=== PATIENT | female | born 1980 | race Two or more races ===

== ENCOUNTER 2024-11-02 04:55 | Day surgery (SDC) | payer OTHER ==
[2024-10-24 11:00] VITALS: BP 108/77
[~2024-11-02] VITALS: Ht 170.2 cm; Wt 69.4 kg
[~2024-11-02 04:55] MED LIST: MULTIPLE VITAM1 EAC2 PO
[2024-11-02] MEDS ORDERED: MONODOX100 MG PO (08:40)
[2024-11-02] MEDS ORDERED: NAPR500T14 PO (08:40)
[2024-11-02] MEDS ORDERED: MORPHINE SULFATE 4 MG/ML VIAL IV PRN (08:45)
[2024-11-02] MEDS ORDERED: PROMETHAZINE HCL 50 MG/ML AMPUL IM ONE (08:45)
[2024-11-02] MEDS ORDERED: POVIDONE-IODINE 118 ML BOTT TOP ONE (09:00)
[2024-11-02] MEDS ORDERED: CHLORHEXIDINE GLUCONATE 120 ML BOTTLE TOP ONE (09:00)
[2024-11-02] MEDS ORDERED: CEFOXITIN SODIUM 2,000 MG VIAL IV ONE (09:00)
[2024-11-02] MEDS ORDERED: MORPHINE SULFATE 4 MG/ML VIAL IV ONE (12:10)
== END 2024-11-02 14:40 | disposition home or self-care (01) ==
LOC: CIR.AMB 04:55
PROVIDERS: ATTEND Obstetrics & Gynecology
DX: D25.0 Submucous leiomyoma of uterus (principal); N92.0 Excessive and frequent menstruation with regular cycle; N84.0 Polyp of corpus uteri